=== PATIENT | male | born 1995 | race Two or more races ===

== ENCOUNTER 2017-09-29 11:31 | Outpatient (CLI) | payer OTHER | END 2017-09-29 11:32 | disposition critical access hospital (66) | LOC: EMS 11:31 | PROVIDERS: ATTEND Surgery | DX: M25.561 Pain in right knee (principal); X50.9XXA Other and unspecified overexertion or strenuous movements or postures, initial encounter; Y93.67 Activity, basketball; Y92.39 Other specified sports and athletic area as the place of occurrence of the external cause | CPT/HCPCS: A0425; A0429 ==

== ENCOUNTER 2017-09-29 11:59 | Emergency (ER) | payer OTHER ==
--- NOTE | 2017-09-29 12:55 | XRAY Report ---
Procedure Date: 09/29/2017 Accession Number: [id number] / [id number] Procedure: XR - Knee 3 View RT CPT Code: FULL RESULT: EXAM: RIGHT KNEE RADIOGRAPHY EXAM DATE: 09/29/2017 12:48 PM. CLINICAL HISTORY: Knee injury, pain. COMPARISON: None. TECHNIQUE: 3 views. FINDINGS: Bones: There are postoperative changes consistent with prior ACL repair. No fractures or bone lesions. Joints: Normal alignment. No subluxation. There is a trace knee joint effusion. Soft Tissues: Normal. No soft tissue swelling. IMPRESSION: 1. Findings consistent with prior ACL repair. No acute osseous abnormality. 2. Trace knee joint effusion. [facility]
--- NOTE | 2017-09-29 12:55 | ED Physician Documentation ---
PD HPI LOWER EXT INJURY - Stated complaint Stated Complaint: KNEE PX - Chief complaint Chief Complaint: Ext Problem - History obtained from History obtained from: Patient - History of Present Illness PD HPI LOW EXT INJURY LOCATION: Right, Knee Type of injury: Other (The patient reports playing basketball and stopping suddenly, the patient then reports hearing a pop in his right knee, the patient initially reported swelling and now the swelling has decreased.) Where injury occurred: Other Timing - onset: Today Timing - details: Abrupt onset Severity Comments: Moderate Improved by: Ice Worsened by: Moving Associated symptoms: Swelling Similar symptoms before: Other (The patient had a prior ACL and meniscus injury on that same knee with surgical fixation) Review of Systems Constitutional: denies: Fever Eyes: denies: Discharge Nose: denies: Congestion GI: denies: Abdominal Pain Skin: denies: Laceration (s) Musculoskeletal: reports: Extremity pain, Joint pain, Joint swelling Neurologic: denies: Generalized weakness, Head injury Immunocompromised: denies: Chemotherapy PD PAST MEDICAL HISTORY - Past Medical History Past Medical History: No - Past Surgical History Past Surgical History: Yes Ortho: Other - Present Medications Home Medications: Ambulatory Orders Medication Instructions Recorded Confirmed RX: Naproxen [Naprosyn] 500 mg PO BID PRN 30 Days #30 09/29/17 tablet - Allergies Allergies/Adverse Reactions: Allergies Allergy/AdvReac Type Severity Reaction Status Date / Time No Known Drug Allergies Allergy Verified 09/29/17 12:12 - Social History Does the pt smoke?: No Smoking Status: Never smoker Does the pt drink ETOH?: Yes Does the pt have substance abuse?: No - Immunizations Immunizations are current?: Yes PD ED PE NORMAL - General General: Alert and oriented X 3, No acute distress - HEENT HEENT: Atraumatic, PERRL, EOMI, Ears normal - Derm Derm: Normal color, No rash - Extremities Extremities: Other (The patient has full active range of motion of the right hip , knee and foot. There is decreased range of motion in the right knee. The patient is tender to palpation of the right knee. There is no erythematous changes. There is mild joint effusion. A comprehensive exam is limited secondary to the patient's pain. There appears to be no joint laxity) - Neuro Neuro: Alert and oriented X 3, No motor deficit - Psych Psych: Normal mood Results - Vitals Vitals: Vital Signs - 24 hr 09/29/17 12:08 Temperature 36.7 C Heart Rate 72 Respiratory 16 Rate Blood Pressure 114/78 O2 Saturation 98 Oxygen O2 Source Room air - Rads (name of study) XR KNEE Radiology: Final report received, See rad report PD MEDICAL DECISION MAKING - ED course ED course: The patient is no evidence of fracture dislocation, his injury may represent a reinjury to the ACL or other ligamentous structure or possibly a reinjury of the meniscus. The patient will be placed in a knee immobilizer and given crutches. I have advised follow-up with orthopedics. I discussed warning signs and recommended returning to the emergency department for worsening or concerns. - Sepsis Event Vital Signs: Vital Signs - 24 hr 09/29/17 12:08 Temperature 36.7 C Heart Rate 72 Respiratory 16 Rate Blood Pressure 114/78 O2 Saturation 98 Oxygen O2 Source Room air Departure - Departure Disposition: 01 Home, Self Care Clinical Impression: Knee sprain Qualifiers: Encounter type: initial encounter Involved ligament of knee: unspecified ligament Laterality: unspecified laterality Qualified Code(s): S83.90XA - Sprain of unspecified site of unspecified knee, initial encounter Condition: Good Instructions: ED Knee Pain [facility] Follow-Up: TUAN MERINO [Primary Care Provider] - Within 1 week Jose Doran MD [Provider Admit Priv/Credential] - (Call to schedule a follow up appointment) Prescriptions: RX: Naproxen [Naprosyn] 500 mg PO BID PRN 30 Days #30 tablet PRN Reason: Pain Comments: Please return to the emergency department for worsening symptoms or any concerns
[2017-09-29] MEDS ORDERED: NAPROXEN 250 MG TABLET PO STA (13:01)
[2017-09-29 13:35] VITALS: BP 134/65
== END 2017-09-29 13:34 | disposition home or self-care (01) ==
LOC: ED 11:59
DX: S83.91XA Sprain of unspecified site of right knee, initial encounter (principal); X50.9XXA Other and unspecified overexertion or strenuous movements or postures, initial encounter; Y93.67 Activity, basketball
CPT/HCPCS: 73562; 99283; A9270

== ENCOUNTER 2017-10-07 08:31 | Outpatient (CLI) | payer OTHER ==
[2017-10-07] MEDS ORDERED: IOPAMIDOL-300 50 ML VIAL ONE (08:47)
[2017-10-07] MEDS ORDERED: GADOPENTETATE DIMEGLUMINE 5 ML VIAL IVP ONE ×3 (08:47→10:06)
[2017-10-07] MEDS ORDERED: IOPAMIDOL-300 50 ML VIAL PO ONE ×2 (10:06)
[2017-10-07] MEDS ORDERED: BUFFERED LIDOCAINE 10 ML SYRINGE IU ONE ×2 (10:06)
--- NOTE | 2017-10-07 10:17 | XRAY Report ---
Procedure Date: 10/07/2017 Accession Number: [id number] / [id number] Procedure: FL - Arthrogram Needle Placement CPT Code: FULL RESULT: EXAM: Arthrogram Needle Placement DATE: 10/07/2017 9:46 AM CLINICAL HISTORY: UNSPECIFIED INJURY OF UNSPECIFIED LOWER LEG COMPARISON: None. TECHNIQUE: The risks, benefits, and alternatives of the procedure were discussed with the patient. All questions were answered. Written and verbal consent were obtained. The knee joint was marked under fluoroscopy and prepped and draped in a sterile manner. Local anesthesia was performed with 1% lidocaine. A 22-gauge needle was then inserted into the knee joint from a lateral approach. 10 mL of a solution containing 25% 1% lidocaine, 25% iodinated contrast, and a 1:200 dilution of gadolinium contrast in sterile saline was then injected. The needle was removed without immediate complication. Other: None. Fluoroscopic exposure time: 47 seconds. Number of fluoroscopic images: 4. FINDINGS: Bones and joints: No fracture or subluxation. Injection: Fluoroscopic images demonstrate needle placement and contrast in the knee joint. IMPRESSION: Fluoroscopic knee joint injection. [facility]
--- NOTE | 2017-10-07 19:30 | MRI Report ---
Procedure Date: 10/07/2017 Accession Number: [id number] / [id number] Procedure: MRI - Arthrogram Knee RT CPT Code: FULL RESULT: EXAM: RIGHT KNEE MRI ARTHROGRAM WITH CONTRAST EXAM DATE: 10/07/2017 09:19 AM. CLINICAL HISTORY: Unspecified injury of unspecified lower leg. COMPARISON: Knee 3 views 09/29/2017. TECHNIQUE: Multiplanar, multisequence T1-weighted and fluid-sensitive sequences of the knee after an arthrographic injection of dilute gadolinium, dictated under a separate exam. Other: None. FINDINGS: Bones: No fractures or subluxations. No marrow edema. No bone lesions. Articular Cartilage: Moderate chondromalacia mid medial femoral condyle. Medial Meniscus: Fibrillation truncated anterior horn medial meniscus consistent with postsurgical changes. Altered morphology posterior horn medial meniscus with free edge and inferior articular surface fibrillation and there is a probable small posterior horn medial meniscus flap (image 10 series 701, and image 19 series 601). Small oblique contrast collection inferior articular surface junction body and posterior horn medial meniscus (image 7 series 701). Lateral Meniscus: The lateral meniscus is intact. Cruciate Ligaments: The ACL graft is intact. Normal alignment distal femur and proximal tibia ACL tunnels. Collateral Ligaments: The medial collateral and lateral collateral ligamentous structures are intact. Tendons: The quadriceps, patellar, semimembranosus, and popliteus tendons are unremarkable. Musculature: No edema or fatty atrophy. Other: No popliteal cyst. No loose bodies. The medial and lateral retinacula are intact. The subcutaneous tissues and fat pads are unremarkable. IMPRESSION: 1. Truncation with fibrillation free edge anterior horn medial meniscus is most likely secondary to postsurgical changes. 2. There is deformity of the posterior horn medial meniscus with deep fissuring or fibrillation and shallow focal contrast collection inferior articular surface posterior horn medial meniscus (image 7 series 701). There is also a possible small meniscus flap of posterior horn medial meniscus at the meniscal root (image 10 series 701. Findings favor postsurgical re-tear. 3. Intact ACL graft with anatomic alignment. 4. Moderate chondromalacia mid medial femoral condyle. [facility] MUSCULOSKELETAL RADIOLOGY SECTION
== END 2017-10-07 08:32 | disposition home or self-care (01) ==
LOC: DI 08:31
PROVIDERS: ATTEND Family Medicine
DX: S89.91XA Unspecified injury of right lower leg, initial encounter (principal); M94.261 Chondromalacia, right knee
CPT/HCPCS: 27370; 73722; 77002; Q9967